=== PATIENT | female | born 1955 | race American Indian/Alaskan Native ===

== ENCOUNTER 2018-08-12 13:21 | Outpatient (CLI) | payer BC, MEDICAID ==
[2018-08-12 13:49] LABS: Hemoglobin 12.2 gm/dl (10.1-14.3); Mean Corpuscular HGB Conc 33 % (30-34); Mean Corpuscular Volume 81 fl (79-97); Platelet Count 354 K/mm3 (140-440); Red Cell Distribution Width 14.7 % (13.2-15.2)
[2018-08-12 14:19] LABS: Alanine Aminotransferase 9 units/L (7-56); Albumin 4.3 g/dL (3.9-5)
[2018-08-12 14:30] LABS: Erythrocyte Sedimentation Rate 39 mm/Hr (0-20)
[2018-08-12 15:28] LABS: BUN/Creatinine Ratio 13; Blood Urea Nitrogen 13 mg/dL (7-17); Calcium 9.5 mg/dL (8.4-10.2); Hemolysis Index 4
== END 2018-08-12 13:22 | disposition home or self-care (01) ==
LOC: LAB 13:21
PROVIDERS: ATTEND Specialist
DX: G50.0 Trigeminal neuralgia (principal); Z91.041 Radiographic dye allergy status; Z88.6 Allergy status to analgesic agent
CPT/HCPCS: 36415; 80053; 85027; 85652

== ENCOUNTER 2018-09-13 14:03 | Outpatient (CLI) | payer BC, MEDICAID | END 2018-09-13 14:04 | disposition home or self-care (01) | LOC: LAB 14:03 | PROVIDERS: ATTEND Specialist | DX: M31.6 Other giant cell arteritis (principal) | CPT/HCPCS: 36415; 85652 ==

== ENCOUNTER 2018-10-05 12:10 | Outpatient (CLI) | payer BC, MEDICAID | END 2018-10-05 12:11 | disposition home or self-care (01) | LOC: LAB 12:10 | PROVIDERS: ATTEND Specialist | DX: M31.6 Other giant cell arteritis (principal) | CPT/HCPCS: 36415; 85652 ==